=== PATIENT | female | born 1980 ===

== ENCOUNTER 2018-02-03 10:52 | Emergency (ER) | payer OTHER ==
[2018-02-03 11:02] VITALS: TEMP 98.2; O2SAT 98
[2018-02-03] MEDS ORDERED: Dexamethasone 4 mg/1 ml IM STA (12:27)
--- NOTE | 2018-02-03 12:39 | C.PDOC ---
History Of Present Illness 37 year old female presents to the emergency department with complaints of constant pain to her right arm for the past month. Patient states she works at a job that requires plenty of hand movement that may have aggravated her arm. She has not visited a doctor and denies any rash, trauma, weakness or numbness. Time Seen by Provider: 02/03/18 11:16 Chief Complaint (Nursing): Upper Extremity Problem/Injury History Per: Patient History/Exam Limitations: no limitations Onset/Duration Of Symptoms: Days Current Symptoms Are (Timing): Still Present Quality: Sharp, "Pain" Pain Scale Rating Of: 5 Exacerbating Factor(s): Strenuous Use Of Affected Area, Movement Recent travel outside of the [place]: No Past Medical History Reviewed: Historical Data, Nursing Documentation, Vital Signs Vital Signs: Last Vital Signs Temp 98.2 F 02/03/18 10:59 Pulse 74 02/03/18 13:30 Resp 16 02/03/18 13:30 BP 113/78 02/03/18 13:30 Pulse Ox 98 02/03/18 13:30 Family History: States: No Known Family Hx - Social History Hx Alcohol Use: No Hx Substance Use: No Review Of Systems Except As Marked, All Systems Reviewed And Found Negative. Cardiovascular: Negative for: Chest Pain Respiratory: Negative for: Shortness of Breath Musculoskeletal: Positive for: Arm Pain (Right) Neurological: Negative for: Weakness, Numbness Physical Exam - Physical Exam Appears: Non-toxic, No Acute Distress Skin: Warm, Dry, No Rash Head: Atraumatic, Normacephalic Eye(s): bilateral: Normal Inspection Oral Mucosa: Moist Throat: No Erythema, No Exudate Neck: Normal ROM, Paracervical Tenderness (right sided), Supple Chest: Symmetrical, No Tenderness Cardiovascular: Rhythm Regular, No Murmur Respiratory: Normal Breath Sounds, No Rales, No Rhonchi, No Wheezing Back: No Vertebral Tenderness, No Paraspinal Tenderness Extremity: Normal ROM (x4 extremities), Tenderness (to right trapezius muscle), No Swelling Pulses: Left Radial: Normal, Right Radial: Normal, Left Dorsalis Pedis: Normal, Right Dorsalis Pedis: Normal Neurological/Psych: Oriented x3, Normal Speech, Normal Motor, Normal Sensation Gait: Steady ED Course And Treatment O2 Sat by Pulse Oximetry: 98 (RA) Pulse Ox Interpretation: Normal Medical Decision Making Medical Decision Making: Plan: -Decadron -Toradol On re-exam, the patient reports improvement of symptoms. Lungs are CTA, heart is RRR. Abdomen is soft, non-tender and tolerating PO well. Follow up with the medical doctor within 1-2 days. Return if worsened. Disposition - Disposition Referrals: [facility] [Outside] Disposition: HOME/ ROUTINE Disposition Time: 13:21 Condition: GOOD Additional Instructions: Follow up with the medical doctor/clinic within 1-2 days. return if worsened. Prescriptions: Naproxen [Naprosyn] 500 mg PO BID #20 tab predniSONE [Prednisone] 10 mg PO BID #10 tab Instructions: Tendonitis (DC) Forms: [employer] (Honduran), Work Excuse Print Language: MALTESE - Clinical Impression Clinical Impression: Tendonitis - PA / [employer] / Resident Statement MD/DO has reviewed & agrees with the documentation as recorded. - Scribe Statement The provider has reviewed the documentation as recorded by the Scribe Marietta Franco All medical record entries made by the Clarisseiblinda were at my direction and personally dictated by me. I have reviewed the chart and agree that the record accurately reflects my personal performance of the history, physical exam, medical decision making, and the department course for this patient. I have also personally directed, reviewed, and agree with the discharge instructions and disposition.
[2018-02-03 13:31] VITALS: BP 113/78; PULSE 74; RESP 16
== END 2018-02-03 13:30 | disposition home or self-care (01) ==
LOC: C.ER 10:52
DX: M77.9 Enthesopathy, unspecified (principal)
CPT/HCPCS: 96372; 99284; J1100; J1885

== ENCOUNTER 2018-10-02 11:44 | Emergency (ER) | payer OTHER ==
[2018-10-02 12:17] VITALS: BMI 20.4
[2018-10-02] MEDS ORDERED: Sodium Chloride 0.9% 1,000 ML IV ONE (13:08)
[2018-10-02 13:31] LABS: HCG,QUALITATIVE URINE NEGATIVE (NEGATIVE)
--- NOTE | 2018-10-02 13:37 | C.PDOC ---
History Of Present Illness Patient is a 38yo female with no significant PMH here today after 3 weeks of intermittent suprapubic pain. Tylenol helps temporarily. Reports bouts of fatigue, nausea without vomiting; she is not currently nauseous. It started as a band across her lower abdomen, but has concentrated to her suprapubic groin. She has a hard time describing the pain as it changes, but mostly is a inward pressure from within. She is sexually active with her last period on August 24 and lasting only one day. She got a bikini wax today to see if she could visualize a problem, but everything went her usual. She denies any urinary changes, including frequency, dysuria, smell, color. Denies fever, chills, chest pain, shortness of breath, constipation, diarrhea, change in appetite. <Monika Cedillo - Last Filed: 10/02/18 13:17> History Per: Patient Onset/Duration Of Symptoms: Waxing/Waning Current Symptoms Are (Timing): Better Pain Scale Rating Of: 8 Location Of Pain/Discomfort: Suprapubic Radiation Of Pain To:: None Quality Of Discomfort: Unable To Describe Associated Symptoms: Nausea Exacerbating Factors: Walking Alleviating Factors: OTC Meds (Tylenol) Last Bowel Movement: Yesterday Abnormal Vaginal Bleeding: Yes Last Menstral Period: 08/24/18 <Monika Cedillo - Last Filed: 10/02/18 13:17> <Dennis Jeong DO - Last Filed: 10/03/18 00:08> Chief Complaint (Nursing): Abdominal Pain Past Medical History Reviewed: Historical Data, Nursing Documentation, Vital Signs Vital Signs: Last Vital Signs Temp 99.4 F 10/02/18 12:20 Pulse 98 H 10/02/18 12:20 Resp 16 10/02/18 12:20 BP 157/84 H 10/02/18 12:20 Pulse Ox 100 10/02/18 12:20 Primary Care Provider: Emily Claire Family History: States: Unknown Family Hx - Social History Hx Tobacco Use: No Hx Alcohol Use: No Hx Substance Use: No - Immunization History Hx Tetanus Toxoid Vaccination: No Hx Influenza Vaccination: No Hx Pneumococcal Vaccination: No <Monika Cedillo - Last Filed: 10/02/18 13:17> Vital Signs: Last Vital Signs Temp 98.2 F 10/02/18 17:20 Pulse 88 10/02/18 17:20 Resp 20 10/02/18 17:20 BP 106/69 10/02/18 17:20 Pulse Ox 98 10/02/18 17:20 <Dennis Jeong DO - Last Filed: 10/03/18 00:08> Review Of Systems Constitutional: Positive for: Weakness. Negative for: Fever, Chills, Weight loss Cardiovascular: Negative for: Chest Pain, Palpitations, Edema, Light Headedness Respiratory: Negative for: Cough, Shortness of Breath, Wheezing Gastrointestinal: Positive for: Nausea, Abdominal Pain. Negative for: Vomiting, Diarrhea, Constipation Genitourinary: Negative for: Dysuria, Frequency, Incontinence, Pelvic Pain Skin: Negative for: Rash, Lesions, Jaundice Neurological: Positive for: Weakness. Negative for: Numbness, Change in Speech, Confusion, Dizziness <Monika Cedillo - Last Filed: 10/02/18 13:17> Physical Exam - Physical Exam Appears: No Acute Distress Skin: Normal Color, Warm, Dry Head: Atraumatic, Normacephalic Eye(s): bilateral: PERRL, EOMI Cardiovascular: Rhythm Regular, No Edema, No Murmur Respiratory: Normal Breath Sounds, No Accessory Muscle Use, No Rales, No Rhonchi, No Wheezing Gastrointestinal/Abdominal: Bowel Sounds, Soft, Tenderness (non TTP, including suprapubic region. pain did not worsen on palpation), No Mass, No Distention, No Guarding, Other (normo-tympanic) Back: CVA Tenderness (left CVA tenderness, none on right) Pelvic: No Cervical Motion Tenderness Extremity: Normal ROM, No Pedal Edema, No Calf Tenderness, No Swelling Pulses: Left Radial: Normal, Right Radial: Normal, Left Dorsalis Pedis: Normal, Right Dorsalis Pedis: Normal Neurological/Psych: Oriented x3, Normal Speech, Normal Cognition, Normal Cranial Nerves <Monika Cedillo - Last Filed: 10/02/18 13:17> ED Course And Treatment O2 Sat by Pulse Oximetry: 100 <Monika Cedillo - Last Filed: 10/02/18 13:17> - Laboratory Results Result Diagrams: 10/02/18 13:43 10/02/18 13:43 Lab Results: Total Bilirubin 0.4 mg/dL (0.2-1.3) 10/02/18 13:43 AST 29 U/L (14-36) 10/02/18 13:43 ALT < 6 U/L (9-52) L D 10/02/18 13:43 Alkaline Phosphatase 81 U/L (38-126) 10/02/18 13:43 Total Protein 8.7 g/dL (6.3-8.3) H 10/02/18 13:43 Albumin 5.0 g/dL (3.5-5.0) 10/02/18 13:43 Globulin 3.7 gm/dL (2.2-3.9) 10/02/18 13:43 Albumin/Globulin Ratio 1.3 (1.0-2.1) 10/02/18 13:43 Lipase 45 U/L (23-300) 10/02/18 13:43 Urine Color Yellow (YELLOW) 10/02/18 13:19 Urine Clarity Clear (Clear) 10/02/18 13:19 Urine pH 5.0 (5.0-8.0) 10/02/18 13:19 Ur Specific [place] 1.017 (1.003-1.030) 10/02/18 13:19 Urine Protein Negative mg/dL (NEGATIVE) 10/02/18 13:19 Urine Glucose (UA) Normal mg/dL (Normal) 10/02/18 13:19 Urine Ketones Negative mg/dL (NEGATIVE) 10/02/18 13:19 Urine Blood 1+ (NEGATIVE) H 10/02/18 13:19 Urine Nitrate Negative (NEGATIVE) 10/02/18 13:19 Urine Bilirubin Negative (NEGATIVE) 10/02/18 13:19 Urine Urobilinogen Normal mg/dL (0.2-1.0) 10/02/18 13:19 Ur Leukocyte Esterase Neg Annette/uL (Negative) 10/02/18 13:19 Urine WBC (Auto) 1 /hpf (0-5) 10/02/18 13:19 Urine RBC (Auto) 8 /hpf (0-3) H 10/02/18 13:19 Ur Squamous Epith Cells 5 /hpf (0-5) 10/02/18 13:19 Urine Bacteria Rare (<OCC) 10/02/18 13:19 Urine HCG, Qual Negative (NEGATIVE) 10/02/18 13:19 Urine HCG, Qual Negative (NEGATIVE) 10/02/18 13:19 <Dennis Jeong DO - Last Filed: 10/03/18 00:08> Medical Decision Making Medical Decision Making: - labs - lipase - UA, upreg, UCx - CT A/P with IV contrast: - Toradol 30mg IVP - Zofran 4mg IVP - NS 1L 0449 re-eval. patient feels better after medication CT A/P with IV contrast: 2.6 x 1.5 cm right adnexal cystic structure favored to reflect ovarian cyst. Small pelvic fluid. Recommend further evaluation with pelvic ultrasound. 4 mm punctate hypodensity at the pancreatic tail appears fatty density, possibly small lipoma. Hypoattenuation of the liver compatible with hepatic steatosis. Small hiatal hernia/distal esophageal wall thickening. <Monika Cedillo - Last Filed: 10/02/18 13:17> Disposition - Disposition Disposition Time: 16:35 <Monika Cedillo - Last Filed: 10/02/18 13:17> <Dennis Jeong DO - Last Filed: 10/03/18 00:08> - Disposition Referrals: [facility], [Non-Staff] - Disposition: HOME/ ROUTINE Condition: IMPROVED Additional Instructions: APURVA SERRANO, thank you for letting us take care of you today. The emergency medical care you received today was directed at your acute symptoms. If you were prescribed any medication, please fill it and take as directed. It may take several days for your symptoms to resolve. Return to the Emergency Department if your symptoms worsen, do not improve, or if you have any other problems. Please contact your doctor or call one of the physicians/clinics you have been referred to that are listed on the Patient Visit Information form that is included in your discharge packet. Bring any paperwork you were given at [facility] with you along with any medications you are taking to your follow up visit. Our treatment cannot replace ongoing medical care by a primary care provider outside of the emergency department. Thank you for allowing the [email or web address] team to be part of your care today. Follow up with your [facility] doctor this week for re-evaluation and further management. Prescriptions: Ibuprofen [Motrin] 600 mg PO Q6 PRN #20 tab PRN Reason: Pain, Moderate (4-7) Instructions: Ovarian Cyst (DC) Forms: [employer] (Montenegrin) - Clinical Impression Clinical Impression: Ovarian cyst
[2018-10-02] MEDS ORDERED: Sodium Chloride 0.9% 1,000 ML ONE (13:40)
[2018-10-02 13:42] LABS: SQUAMOUS EPITHIAL 5 /hpf (0-5); URINE BACTERIA RARE (<OCC); URINE BILIRUBIN NEGATIVE (NEGATIVE); URINE BLOOD 1+ (NEGATIVE); URINE CLARITY Clear (Clear); URINE COLOR Yellow (YELLOW); URINE GLUCOSE (UA) NORMAL (Normal); URINE LEUKOCYTE ESTERASE NEG Leu/uL (Negative); URINE PROTEIN NEGATIVE (NEGATIVE); URINE UROBILINOGEN NORMAL mg/dL (0.2-1.0)
[2018-10-02 13:46] LABS: BASO # 0.1 K/uL (0.0-0.2); EOS # 0.1 K/uL (0.0-0.7); EOS % 1.2 % (0.0-4.0); HEMOGLOBIN 13.6 g/dL (11.0-16.0); LYMPH # 1.9 K/uL (1.0-4.3); LYMPH % 24.6 % (20.0-40.0); MEAN CELL VOLUME 86.6 fL (81.0-99.0); MEAN CORPUSCULAR HEMOGLOBIN 29.8 pg (27.0-31.0); MEAN CORPUSCULAR HGB CONC 34.4 g/dL (33.0-37.0); MEAN PLATELET VOLUME 7.8 fL (7.2-11.7); MONO # 0.5 K/uL (0.0-0.8); MONO % 5.9 % (0.0-10.0); NEUT # 5.3 K/uL (1.8-7.0); NEUT % 67.3 % (50.0-75.0); NRBC % 0.1 % (0.0-2.0); RBC 4.56 Mil/uL (3.80-5.20); RED CELL DISTRIBUTION WIDTH 14.4 % (11.5-14.5); WHITE BLOOD COUNT 7.9 K/uL (4.8-10.8)
[2018-10-02 14:00] LABS: ALB/GLOB RATIO 1.3 (1.0-2.1); AST/SGOT 29 U/L (14-36); BLOOD UREA NITROGEN 12 mg/dL (7-17); CALCIUM 9.9 mg/dl (8.6-10.4); GFR NON-AFRICAN AMERICAN > 60; LIPASE 45 U/L (23-300)
[2018-10-02 14:01] LABS: ALT/SGPT < 6 U/L (9-52)
[2018-10-02] MEDS ORDERED: Iodixanol 320 MG/ML 100 ML BOTTLE IV ONE (14:44)
[2018-10-02 15:43] VITALS: RESP 20
--- NOTE | 2018-10-02 16:24 | CT ---
Date of service: 10/02/2018 PROCEDURE: CT Abdomen and Pelvis with contrast HISTORY: lower abdominal pain COMPARISON: None available. TECHNIQUE: Contrast dose: 100 mL Visipaque 320 IV Radiation dose: Total exam DLP = 204.9 mGy-cm. This CT exam was performed using one or more of the following dose reduction techniques: Automated exposure control, adjustment of the mA and/or kV according to patient size, and/or use of iterative reconstruction technique. FINDINGS: LOWER THORAX: No visible consolidation, pleural effusion, or pneumothorax. 3 mm calcified granuloma, right lung base. Small hiatal hernia/distal esophageal wall thickening. LIVER: Hypoattenuation of the liver compatible with hepatic steatosis. GALLBLADDER AND BILE DUCTS: Unremarkable. PANCREAS: 4 mm punctate hypodensity at the pancreatic tail appears fatty density, possibly small lipoma. SPLEEN: Unremarkable. ADRENALS: Unremarkable. KIDNEYS AND URETERS: The kidneys enhance symmetrically. No hydronephrosis or obstructing calculus identified. VASCULATURE: No aortic aneurysm. No atherosclerotic calcification or mural plaque present. BOWEL: Stomach is nondistended. Lack of oral contrast limits evaluation for bowel pathology. Bowel loops appear within normal limits of caliber without evidence of obstruction. APPENDIX: No secondary signs of acute appendicitis. PERITONEUM: No significant free fluid. No definite free air. LYMPH NODES: No bulky adenopathy identified. BLADDER: Unremarkable. REPRODUCTIVE: Uterus is present. 2.6 x 1.5 cm right adnexal cystic structure favored to reflect ovarian cyst. Small pelvic fluid. BONES: No acute osseous abnormality is detected. OTHER FINDINGS: None. IMPRESSION: 2.6 x 1.5 cm right adnexal cystic structure favored to reflect ovarian cyst. Small pelvic fluid. Recommend further evaluation with pelvic ultrasound. 4 mm punctate hypodensity at the pancreatic tail appears fatty density, possibly small lipoma. Hypoattenuation of the liver compatible with hepatic steatosis. Small hiatal hernia/distal esophageal wall thickening. Additional incidental findings as above.
[2018-10-02 17:21] VITALS: BP 106/69; PULSE 88; TEMP 98.2; O2SAT 98
== END 2018-10-02 17:21 | disposition home or self-care (01) ==
LOC: C.ER 11:44
DX: N83.201 Unspecified ovarian cyst, right side (principal)
CPT/HCPCS: 74177; 80053; 81001; 83690; 84703; 85025; 87086; 96361; 96374; 96375; 99284; J1885; J2405; J7030; Q9967